=== PATIENT | male | born 1950 | race Caucasian/White ===

== ENCOUNTER 2016-09-10 04:57 | Emergency (ER) | payer MEDICARE ==
--- NOTE | ~2016-09-10 | ER ---
PATIENT'S NAME: SHELIA CHAVIRA [facility] AGE: 66 Y [address] ROOM: [place] [address] LOCATION: [facility] ADMIT DATE: 09/10/2016 ER/Outpatient Report DISCHARGE DATE: FAMILY PHYSICIAN: PHYSICIAN, NO ATTENDING PHYSICIAN: Arun Leblanc Admission date and time documented in the medical record. I saw the patient at 0510 hours. CHIEF COMPLAINT: Syncopal episode, head trauma. HISTORY OF PRESENT ILLNESS: The patient is a 66-year-old male, who is traveling through [place]. They stopped at [place] [employer] stop. He started to have a hot flash, opened the door and tried to get his coat off and fell out of the car hitting the back of his head losing consciousness. He states that he thinks he lost consciousness before he hit the ground. Brought to the emergency room by paramedics via the ambulance for evaluation here in the emergency department. He was on a spine board with a rigid cervical collar. He is awake, alert, responsive here in the emergency department. Complains of headache and some mild neck pain. No other spine pain other than his low back, which is chronic. No eyes, ears, nose, throat pain. No chest pain or shortness of breath. No abdominal pain. No nausea, vomiting, diarrhea, or urinary complaints. No recent cough, colds, flus, fever, chills, or sweats. No other injuries. No joint or muscle swelling, redness, or pain. No skin eruptions or rash. No history of neuro changes, psych issues, endocrine problems. HOME MEDICATIONS: See attached medication list. ALLERGIES: NONE. SOCIAL HISTORY: The patient smokes a pack of cigarettes per day. Occasional intake of alcohol. SIGNIFICANT PAST MEDICAL HISTORY: Tobacco abuse, gastroesophageal reflux, chronic low back pain, hypertension, prostate cancer, elevated cholesterol. REVIEW OF SYSTEMS: All systems reviewed by me are negative with exception of those discussed in the history of present illness. PATIENT'S NAME: SHELIA CHAVIRA [facility] AGE: 66 Y [address] ROOM: [place] [address] LOCATION: [facility] ADMIT DATE: 09/10/2016 ER/Outpatient Report DISCHARGE DATE: FAMILY PHYSICIAN: PHYSICIAN, NO ATTENDING PHYSICIAN: Arun Leblanc PHYSICAL EXAMINATION: VITAL SIGNS: Temperature 97.7, pulse 82, respirations 16, blood pressure 133/81, O2 sat on room air is 99%. HEAD: Normocephalic. The patient has some bleeding from the occipital scalp. It was not investigated until the scans were done. EYES: Extraocular muscles intact. PERRL. EARS: Clear TMs bilaterally. NOSE AND THROAT: Clear. Mucous membranes moist. No teeth. The patient is edentulous. NECK: The patient has rigid cervical collar. LUNGS: Clear. Good air flow. No rales, rhonchi, or wheezes. HEART: Regular. Pulses are palpable. No chest wall or ribcage pain to palpation. ABDOMEN: Soft, nondistended, nontender. Good bowel tones. No organomegaly or abnormal mass palpable. No CVA tenderness. PELVIS: Stable, nontender. EXTREMITIES: Moves all 4 extremities. No peripheral edema, cyanosis, or deformity. NEURO: Cranial nerves intact. No lateralized sign. The patient is awake, cooperative. Motor and sensory intact. SKIN: Clear other than the looks like a possible abrasion or laceration on occipital scalp. LABORATORY DATA: CMS was normal except an elevated glucose of 114, magnesium was 2.0, CPK was 72, point of care cardiac enzymes were normal. EKG showed sinus rhythm, low- voltage. No acute ST elevation, ischemic change, or arrhythmia. Chest x-ray showed no acute infiltrate or changes. We will review x-ray with radiologist. [place] [address], 83 segs, 8 lymphs, 7 monos, 1 eo. Hemoglobin is 12.9, hematocrit 38.2, platelet count is 192,000. PTT is 25, pro-time is 10.[address] scan of the head, C-spine, T-spine are pending. Awaiting radiology report. IMPRESSION: 1. Syncopal episode with fall out of the car, hit in the back of his head, suffered either an abrasion or laceration. Inspection is pending CT scan of the head results. 2. History of hypertension. 3. History of prostate cancer, on hormonal medication. 4. Chronic low back pain. 5. Gastroesophageal reflux. 6. Elevated cholesterol. 7. Tobacco abuse. PLAN: Transfer the patient's care over to Dr. Mccrary at shift change. I asked Dr. PATIENT'S NAME: SHELIA CHAVIRA [facility] AGE: 66 Y [address] ROOM: [place] [address] LOCATION: [facility] ADMIT DATE: 09/10/2016 ER/Outpatient Report DISCHARGE DATE: FAMILY PHYSICIAN: PHYSICIANBIANCA ATTENDING PHYSICIAN: Arun Leblanc to follow up with the patient's CT scan results, final diagnosis, and treatment plan. MD BILL ASIF/lakhwinderl /[id number] d: 09/10/16 0648 t: 09/13/16 181, OUTPATIENT REPORT
--- NOTE | ~2016-09-10 | ER ---
PATIENT'S NAME: SHELIA CHAVIRA [facility] AGE: 66 Y [address] ROOM: [place] [address] LOCATION: [facility] ADMIT DATE: 09/10/2016 ER/Outpatient Report DISCHARGE DATE: 09/10/2016 FAMILY PHYSICIAN: PHYSICIAN, NO ATTENDING PHYSICIAN: Arun Leblanc ADDENDUM: Mr. Chavira received care from Dr. Leblanc until 0600 hours when I assumed care. The patient had what appears to be a syncopal episode related to nausea, temperature change, fatigue, and stress at a local rest stop. He did arrive by ambulance. His labs are reassuring. His EKG is of poor quality but without any obvious abnormalities. I was asked to follow up on the CT scan and evaluate the patient, disposition accordingly, and deal with his scalp laceration. Shortly after handoff, I did receive the reports. I did review the images. I concur that there are no obvious abnormalities. The patient was evaluated. His C-spine was cleared. He had no persistent pain. The scalp was evaluated and he was found to have a 1.2 cm laceration full thickness over the left occipital parietal junction. This was irrigated and closed with three simona. The patient tolerated that well. The patient was otherwise feeling well. He has decided not to continue his trip and will be returning home to [place]. Simona out in 5 days. Stop immediately if needed. Prescription for Zofran to prevent nausea during travel was given. All questions were answered. The patient was discharged in good condition. MD MENDEZ UGALDE/jose /[id number] d: 09/10/16 1150 t: 09/25/16 0949, OUTPATIENT REPORT
[2016-09-10 05:36] LABS: BASOPHIL % 0.3 %; EOSINOPHIL # 0.1 K/uL (0.0-0.5); EOSINOPHIL % 0.8 %; HEMATOCRIT 38.2 % (37.0-53.0); HEMOGLOBIN 12.9 g/dL (11.0-16.0); IMMATURE GRANULOCYTE # 0.1 K/uL (0.0-0.3); IMMATURE GRANULOCYTE % 1.1 %; INR - (THERAPEUTIC) 0.97 (0.92-1.07); LYMPHOCYTE % 8.4 %; MCH 29.6 pg (27.0-34.0); MCHC 33.8 gm/dL (32.0-36.5); MCV 87.6 fl (83.0-98.0); MONOCYTE # 0.8 K/uL (0.0-1.0); MONOCYTE % 6.9 %; MPV 10.1 fl (9.4-12.4); NEUTROPHIL # (ANC) 9.5 K/uL (1.4-9.0); NEUTROPHIL % 82.5 %; NRBC % 0 /100WBC (0-0.00); PLATELET COUNT 192 K/uL (150-450); PROTIME 10.2 SECONDS (9.8-11.4); PTT 25 SECONDS (25-32); RBC 4.36 M/uL (3.50-5.50); RDW-CV 13.8 % (11.9-14.6); WBC 11.5 K/uL (4.0-11.0)
[2016-09-10 05:45] LABS: ALBUMIN 3.5 gm/dL (3.5-5.0); ALK PHOS 68 IU/L (33-138); ALT 19 IU/L (12-78); ANION GAP 11.7 (10.0-19.0); AST 12 IU/L (10-40); BLOOD UREA NITROGEN 15 mg/dL (6-24); CALCIUM 8.7 mg/dL (8.5-10.5); CHLORIDE 103 mMol/L (96-110); CO2 24 mMol/L (22-32); CPK 72 IU/L (35-332); CREATININE 1.1 mg/dL (0.6-1.3); POTASSIUM 3.7 mMol/L (3.7-5.1); SODIUM 135 mMol/L (135-145); TOTAL BILIRUBIN 0.5 mg/dL (0.0-1.5); TOTAL PROTEIN 6.7 g/dL (6.0-8.4)
== END 2016-09-10 06:52 | disposition disaster alternative care site (69) ==
LOC: GACC 04:57
PROVIDERS: Emergency Medicine
PROC: 0HQ0XZZ Repair Scalp Skin, External Approach (ICD-10-PCS; principal; 2016-09-10)
DX: R55 Syncope and collapse (principal); S01.01XA Laceration without foreign body of scalp, initial encounter; E78.00 Pure hypercholesterolemia, unspecified; I10 Essential (primary) hypertension; K21.9 Gastro-esophageal reflux disease without esophagitis; M54.5 Low back pain; G89.29 Other chronic pain; F17.210 Nicotine dependence, cigarettes, uncomplicated; Z85.46 Personal history of malignant neoplasm of prostate; Z79.1 Long term (current) use of non-steroidal anti-inflammatories (NSAID); Z79.899 Other long term (current) drug therapy; W18.30XA Fall on same level, unspecified, initial encounter
CPT/HCPCS: J2405; J7030

== ENCOUNTER → 2016-09-10 | Outpatient (CLI) | payer MEDICARE | END | disposition disaster alternative care site (69) | LOC: GAMB 04:22 | DX: R55 Syncope and collapse (principal); I61.9 Nontraumatic intracerebral hemorrhage, unspecified; S01.91XA Laceration without foreign body of unspecified part of head, initial encounter; R51 Headache; Z79.899 Other long term (current) drug therapy; X58.XXXA Exposure to other specified factors, initial encounter | CPT/HCPCS: A0425; A0427 ==